=== PATIENT | female | born 1990 | race Caucasian/White ===

== ENCOUNTER 2017-07-21 00:52 | Emergency (ER) | payer BC ==
--- NOTE | 2017-07-21 01:30 | ED ---
General Adult HPI - General Chief complaint: Chest Pain Stated complaint: chest pain Time Seen by Provider: 07/21/17 01:05 Source: patient, family, RN notes reviewed Mode of arrival: ambulatory Limitations: no limitations - History of Present Illness Initial comments: 27-year-old female presents emergency room chief complaint of chest pain. Patient's initial chest pain radiating to her back in cosmetics and tingling to left shoulder area. Patient states the pain completely resolved. Patient states she has no pain at this time. Patient states have an episode of nausea with it. Patient states she was just leaning been trying to sleep when it happened. Patient states he did not last very long. Patient states she's never had anything like this before. Patient states there was no shortness of breath associated with this. Patient denies any use of control she denies any long trips or travel she denies any calf pain. Patient states that she not feel short of breath this happened. Patient denies any significant health history in her. There is no Duncan in history any amnesia and her family. Patient denies any recent fever, chills, shortness of breath, back pain , abdominal pain, vomiting, numbness or tingling, dysuria or hematuria, constipation or diarrhea, headaches or visual changes, or any other current symptoms. - Related Data Home Medications Medication Instructions Recorded Confirmed No Known Home Medications [No 07/21/17 07/21/17 Known Home Medications] Allergies Allergy/AdvReac Type Severity Reaction Status Date / Time No Known Allergies Allergy Verified 07/21/17 01:03 Review of Systems ROS Statement: Those systems with pertinent positive or pertinent negative responses have been documented in the HPI. ROS Other: All systems not noted in ROS Statement are negative. Past Medical History Past Medical History: No Reported History History of Any Multi-Drug Resistant Organisms: None Reported Past Surgical History: Orthopedic Surgery Past Psychological History: No Psychological Hx Reported Smoking Status: Current some day smoker Past Alcohol Use History: Occasional Past Drug Use History: None Reported General Exam - General Exam Comments Initial Comments: General: The patient is awake and alert, in no distress, and does not appear acutely ill. Eye: Pupils are equal, round and reactive to light, extra-ocular movements are intact; there is normal conjunctiva bilaterally. No signs of icterus. Ears, nose, mouth and throat: There are moist mucous membranes. Neck: The neck is supple, there is no tenderness. Cardiovascular: There is a regular rate and rhythm. No murmur, rub or gallop is appreciated. Respiratory: Lungs are clear to auscultation, respirations are non-labored, breath sounds are equal. No wheezes, stridor, rales, or rhonchi. Gastrointestinal: Soft, non-distended, non-tender abdomen without masses or organomegaly noted. There is no rebound or guarding present. No CVA tenderness. Bowel sounds are unremarkable. Back: There is no tenderness to palpation in the midline. There is no obvious deformity. No rashes noted. Musculoskeletal: Normal ROM, no tenderness, There is no pedal edema. There is no calf tenderness or swelling. Sensation intact. Pulses equal bilaterally 2+. Neurological: CN II-XII intact, There are no obvious motor or sensory deficits. Coordination appears grossly intact. Speech is normal. Skin: Skin is warm and dry and no rashes or lesions are noted. Psychiatric: Cooperative, appropriate mood & affect, normal judgment. Limitations: no limitations Course Vital Signs 07/21/17 01:00 Temperature 99 F Pulse Rate 78 Respiratory 18 Rate Blood Pressure 150/78 O2 Sat by Pulse 99 Oximetry EKG Findings - EKG Comments: EKG Findings:: normal sinus rhythm with sinus arrhythmia 70 bpm, normal axis, no atopy, no S-T depressions or elevations, Medical Decision Making - Medical Decision Making 27-year-old female presents to the emergency department with a chief complaint of chest pain. This time patient's EKG and chest x-ray reviewed and negative. We did discuss that she does need to be continued outpatient follow-up. We discussed return parameters possible etiologies for pain. We did discuss all the patient's questions. It is small questions have been answered and the on agreement plan. This time they will be discharged home. - Radiology Data Radiology results: report reviewed, image reviewed Disposition Clinical Impression: Chest pain Disposition: HOME SELF-CARE Condition: Stable Instructions: Chest Pain (ED) Additional Instructions: Please use medication as discussed. Please follow up with family doctor if symptoms have not improved over the next two days. Please return to the emergency room if your symptoms increase or worsen or for any other concerns. Referrals: Ruslan Lovelace DO [Primary Care Provider] - 1-2 days Time of Disposition: 02:17
--- NOTE | 2017-07-21 02:09 | XR ---
EXAM: XR Chest, 2 Views CLINICAL HISTORY: Reason: cough TECHNIQUE: Frontal and lateral views of the chest. COMPARISON: No relevant prior studies available. FINDINGS: Lungs: Unremarkable. No consolidation. Pleural space: Unremarkable. No pneumothorax. Heart: Unremarkable. No cardiomegaly. Mediastinum: Unremarkable. Bones/joints: No acute osseous abnormality. IMPRESSION: No acute cardiopulmonary process.
[2017-07-21 02:31] VITALS: BP 119/67; PULSE 57; RESP 16; TEMP 98.2
== END 2017-07-21 02:30 | disposition home or self-care (01) ==
LOC: EC 00:52
DX: R07.9 Chest pain, unspecified (principal); M54.9 Dorsalgia, unspecified; R20.2 Paresthesia of skin; R11.0 Nausea; F17.200 Nicotine dependence, unspecified, uncomplicated
CPT/HCPCS: 71020; 93005; 99285

== ENCOUNTER → 2018-12-16 | Outpatient (CLI) | payer BC ==
--- NOTE | 2018-12-16 09:45 | CT ---
EXAMINATION TYPE: CT knee RT wo con DATE OF EXAM: 12/16/2018 COMPARISON: None HISTORY: 28-year-old female displaced fracture of the lateral condyle of right tibia Right knee pain, Effusion, right knee, Displaced fracture of lateral condyle of right knee TECHNIQUE: Contiguous axial scanning of the right knee without IV contrast. Coronal and sagittal dot nstructions performed. 3-D reconstructions generated on a dedicated independent workstation. CT DLP: 368 mGycm Automated exposure control for dose reduction was used. FINDINGS: There is a comminuted impaction type fracture of the lateral tibial plateau. This involves the majori ty of the articular surface measuring 2.5 cm wide and 3.0 cm AP. Impaction of articular bone into the lateral tibial plateau measures up to 7 mm. Fracture extends through some of the anterolateral cortical margin of the proximal tibial epiphysis w here additional comminution is present. Moderate knee joint effusion. Extensor mechanism is intact. No additional acute fracture is identifie d. IMPRESSION: COMMINUTED IMPACTION FRACTURE OF THE ARTICULAR SURFACE OF THE LATERAL TIBIAL PLATEAU. THERE IS IMPACT ION OF THE SUBARTICULAR BONE MEASURING UP TO 7.5 CM DEEP. THE OVERALL ARTICULAR SURFACE DISRUPTION M EASURES 2.5 CM WIDE AND 3.0 CM AP. COMMINUTION EXTENDS TO INVOLVE THE ANTEROLATERAL LIP OF THE LATERA L TIBIAL PLATEAU.
== END | disposition home or self-care (01) ==
LOC: RADCTMAIN 08:22
PROVIDERS: ATTEND Orthopaedic Surgery
DX: S82.251A Displaced comminuted fracture of shaft of right tibia, initial encounter for closed fracture (principal)

== ENCOUNTER → 2019-05-03 | Outpatient (CLI) | payer BC ==
[2019-05-03 08:16] LABS: Basophils % (A) 1 %; Eosinophils # (A) 0.2 k/uL (0-0.7); Eosinophils % (A) 2 %; HCT 40.9 % (34.0-46.0); HGB 13.6 gm/dL (11.4-16.0); Lymphocytes # (A) 1.5 k/uL (1.0-4.8); Lymphocytes % (A) 19 %; MCHC 33.2 g/dL (31.0-37.0); MCV 87.4 fL (80.0-100.0); Monocytes # (A) 0.5 k/uL (0-1.0); Monocytes % (A) 6 %; Neutrophils # (A) 5.4 k/uL (1.3-7.7); Neutrophils % (A) 69 %; Platelet Count 322 k/uL (150-450); RBC 4.68 m/uL (3.80-5.40); RDW 13.8 % (11.5-15.5); WBC 7.8 k/uL (3.8-10.6)
[2019-05-03 10:52] LABS: African American GFR (CKD) 100.1 (60.0-200.0); Albumin 4.4 g/dL (3.80-4.90); Albumin/Globulin Ratio 1.83 (1.60-3.17); Anion Gap 7.1 mmol/L (4.00-12.00); BUN/Creat Ratio 13.33 Ratio (12.00-20.00); Calcium 9.6 mg/dL (8.7-10.3); Carbon Dioxide 27.9 mmol/L (21.6-31.8); Globulin 2.4 g/dL (1.6-3.3); LDL Cholesterol,Calculated 118.8 mg/dL (0.0-131.0); Potassium 4.3 mmol/L (3.5-5.5); Total Bilirubin 0.5 mg/dL (0.2-1.2); Total Protein 6.8 g/dL (6.2-8.2); VLDL Calculation 29.2 mg/dL (5.00-40.00)
== END | disposition home or self-care (01) ==
LOC: LABWHC1 07:17
PROVIDERS: ATTEND Physician Assistant
DX: Z00.00 Encounter for general adult medical examination without abnormal findings (principal)
CPT/HCPCS: 36415; 80053; 80061; 85025

== ENCOUNTER 2021-10-25 15:23 | Emergency (ER) | payer BC ==
[2021-10-25 16:53] LABS: Appearance,Urine Cloudy (Clear); Bacteria,Urine Rare /hpf; Bilirubin,Urine Negative (Negative); Blood,Urine Moderate (Negative); Color,Urine Yellow; Glucose,Urine (UA) Negative (Negative); Ketones,Urine Negative (Negative); Leukocyte Esterase,Urine Large (Negative); Mucus,Urine Rare /hpf; Nitrite,Urine Negative (Negative); Protein,Urine 1+ (Negative); RBC,Urine 2 /hpf (0-5); Specific Gravity,Urine 1.021 (1.001-1.035); Squamous Epithelial Cell,Urine 11 /hpf (0-4); WBC,Urine 12 /hpf (0-5)
--- NOTE | 2021-10-25 17:59 | ED ---
General Adult HPI - General Source: patient, RN notes reviewed, old records reviewed Mode of arrival: ambulatory Limitations: no limitations <Wellington Dalal - Last Filed: 10/25/21 17:59> <Elodia Parra - Last Filed: 10/25/21 18:03> - General Chief complaint: Recheck/Abnormal Lab/Rx Stated complaint: Covid+/antibodies, poss UTI Time Seen by Provider: 10/25/21 17:59 - Related Data Previous Rx's Medication Instructions Recorded Albuterol Sulfate [Proair Hfa] 1 - 2 puff INHALATION Q6HR PRN 10/25/21 #8.5 gm Dexamethasone 6 mg PO DAILY #3 tablet 10/25/21 Nitrofurantoin Monohyd/M-Cryst 100 mg PO Q12HR #14 cap 10/25/21 [Macrobid] Allergies Allergy/AdvReac Type Severity Reaction Status Date / Time amoxicillin [From Augmentin] Allergy Unknown Verified 10/25/21 16:19 clavulanic acid Allergy Unknown Verified 10/25/21 16:19 [From Augmentin] Review of Systems ROS Other: All systems not noted in ROS Statement are negative. <Wellington Dalal - Last Filed: 10/25/21 17:59> ROS Other: All systems not noted in ROS Statement are negative. <Elodia Parra - Last Filed: 10/25/21 18:03> ROS Statement: Those systems with pertinent positive or pertinent negative responses have been documented in the HPI. Past Medical History Past Medical History: No Reported History History of Any Multi-Drug Resistant Organisms: None Reported Past Surgical History: Orthopedic Surgery Past Psychological History: Anxiety Smoking Status: Never smoker Past Alcohol Use History: Occasional Past Drug Use History: None Reported <Wellington Dalal - Last Filed: 10/25/21 17:59> General Exam Limitations: no limitations <Wellington Dalal - Last Filed: 10/25/21 17:59> Course Vital Signs 10/25/21 16:19 Temperature 100.8 F H Pulse Rate 111 H Respiratory 20 Rate Blood Pressure 116/80 O2 Sat by Pulse 93 L Oximetry Medical Decision Making - Lab Data Lab Results 10/25/21 10/25/21 Range/Units 16:27 16:27 Urine Color Yellow Urine Appearance Cloudy H (Clear) Urine pH 6.0 (5.0-8.0) Ur Specific [place] 1.021 (1.001-1.035) Urine Protein 1+ H (Negative) Urine Glucose (UA) Negative (Negative) Urine Ketones Negative (Negative) Urine Blood Moderate H (Negative) Urine Nitrite Negative (Negative) Urine Bilirubin Negative (Negative) Urine Urobilinogen 4.0 (<2.0) mg/dL Ur Leukocyte Esterase Large H (Negative) Urine RBC 2 (0-5) /hpf Urine WBC 12 H (0-5) /hpf Ur Squamous Epith Cells 11 H (0-4) /hpf Urine Bacteria Rare H (None) /hpf Urine Mucus Rare H (None) /hpf Urine HCG, Qual Not Detected (Not Detectd) Disposition <Wellington Dalal - Last Filed: 10/25/21 17:59> Is patient prescribed a controlled substance at d/c from ED?: No Time of Disposition: 18:02 <Elodia Parra - Last Filed: 10/25/21 18:03> Clinical Impression: Pneumonia due to COVID-19 virus, UTI (urinary tract infection) Disposition: HOME SELF-CARE Condition: Good Instructions (If sedation given, give patient instructions): Urinary Tract Infection in Women (ED), Coronavirus Disease 2019 (COVID-19) Additional Instructions: Tips to help you feel better: -Maintain adequate fluid intake - especially water. -Rest, you are healing your body will require extra sleep. -Eat even if you do not feel like it - broth, jello, toast are fine if you cannot eat full meals. -Take tylenol and motrin alternating (if you have no allergies or have not been instructed to avoid these medications) to help with body aches and fevers. -Obtain over the counter vitamin C, zinc, and vitamin D3. -Take medications as prescribed. Follow-up with your primary care physician for recheck in 1-2 days. Return for any new, worsening, or concerning symptoms. Prescriptions: Dexamethasone 6 mg PO DAILY #3 tablet Nitrofurantoin Monohyd/M-Cryst [Macrobid] 100 mg PO Q12HR #14 cap Albuterol Sulfate [Proair Hfa] 1 - 2 puff INHALATION Q6HR PRN #8.5 gm PRN Reason: Shortness Of Breath Referrals: Ruslan Lovelace DO [Primary Care Provider] - 1-2 days
--- NOTE | 2021-10-25 18:04 | ED ---
General Adult HPI - General Chief complaint: Recheck/Abnormal Lab/Rx Stated complaint: Covid+/antibodies, poss UTI Time Seen by Provider: 10/25/21 17:59 Source: patient Mode of arrival: ambulatory Limitations: no limitations - History of Present Illness Initial comments: 31-year-old female patient presents to the emergency department today for evaluation of persistent fever, cough, shortness of breath since being diagnosed with colon. States she has been having symptoms for the last 11 days. States she has been taking steroids has been on an antibiotic. States she is taking Phenergan for cough. States she spiked a fever again today. States her urine has been dark in odorous. States she is urinating more frequently. She is concerned she may have a urinary tract infection. She was hoping to receive infusion of a monoclonal antibodies. Denies taking any Tylenol or Motrin today. Denies any vomiting or diarrhea. States she is able to eat and drink. Denies any chance of . - Related Data Previous Rx's Medication Instructions Recorded Albuterol Sulfate [Proair Hfa] 1 - 2 puff INHALATION Q6HR PRN 10/25/21 #8.5 gm Dexamethasone 6 mg PO DAILY #3 tablet 10/25/21 Nitrofurantoin Monohyd/M-Cryst 100 mg PO Q12HR #14 cap 10/25/21 [Macrobid] Allergies Allergy/AdvReac Type Severity Reaction Status Date / Time amoxicillin [From Augmentin] Allergy Unknown Verified 10/25/21 16:19 clavulanic acid Allergy Unknown Verified 10/25/21 16:19 [From Augmentin] Review of Systems ROS Statement: Those systems with pertinent positive or pertinent negative responses have been documented in the HPI. ROS Other: All systems not noted in ROS Statement are negative. Past Medical History Past Medical History: No Reported History History of Any Multi-Drug Resistant Organisms: None Reported Past Surgical History: Orthopedic Surgery Past Psychological History: Anxiety Smoking Status: Never smoker Past Alcohol Use History: Occasional Past Drug Use History: None Reported General Exam Limitations: no limitations General appearance: alert, in no apparent distress, other (This is a well- developed, well-nourished adult female in no acute distress.) Eye exam: Present: normal appearance, PERRL, EOMI. Absent: scleral icterus, conjunctival injection, periorbital swelling ENT exam: Present: normal exam, normal oropharynx, mucous membranes moist Respiratory exam: Present: normal lung sounds bilaterally, other (Crackles at the bases bilaterally posterior). Absent: respiratory distress, wheezes, rales, rhonchi, stridor Cardiovascular Exam: Present: normal rhythm, tachycardia, normal heart sounds. Absent: systolic murmur, diastolic murmur, rubs, gallop, clicks GI/Abdominal exam: Present: soft, normal bowel sounds. Absent: distended, tenderness, guarding, rebound, rigid Neurological exam: Present: alert, oriented X3, CN II-XII intact Psychiatric exam: Present: normal affect, normal mood Skin exam: Present: warm, dry, intact, normal color. Absent: rash Course Vital Signs 10/25/21 10/25/21 16:19 18:15 Temperature 100.8 F H 97.2 F L Pulse Rate 111 H 103 H Respiratory 20 18 Rate Blood Pressure 116/80 129/82 O2 Sat by Pulse 93 L 93 L Oximetry Medical Decision Making - Medical Decision Making 31-year-old female patient presents to the emergency department requesting infusion a monoclonal antibodies after testing positive for COVID-19. Unfortunate she has been having symptoms for the last 11 days and no longer meets criteria. Physical examination did reveal crackles at the bilateral posterior lung bases consistent with pneumonia. She is currently taking steroids at home, had a 7 day prescription for dexamethasone, did give her additional 3 tablets for this. She is given a Pro Air inhaler. She also did have urinary symptoms and evidence for possible UTI on urinalysis. She'll be given prescription for Macrobid. She is instructed to follow-up with her primary care physician for recheck in 1-2 days. She is given instructions for supportive care at home. Return parameters were discussed in detail. She verbalizes understanding and agrees this plan. My attending is Dr. Davalos. - Lab Data Lab Results 10/25/21 10/25/21 Range/Units 16:27 16:27 Urine Color Yellow Urine Appearance Cloudy H (Clear) Urine pH 6.0 (5.0-8.0) Ur Specific [place] 1.021 (1.001-1.035) Urine Protein 1+ H (Negative) Urine Glucose (UA) Negative (Negative) Urine Ketones Negative (Negative) Urine Blood Moderate H (Negative) Urine Nitrite Negative (Negative) Urine Bilirubin Negative (Negative) Urine Urobilinogen 4.0 (<2.0) mg/dL Ur Leukocyte Esterase Large H (Negative) Urine RBC 2 (0-5) /hpf Urine WBC 12 H (0-5) /hpf Ur Squamous Epith Cells 11 H (0-4) /hpf Urine Bacteria Rare H (None) /hpf Urine Mucus Rare H (None) /hpf Urine HCG, Qual Not Detected (Not Detectd) Disposition Clinical Impression: Pneumonia due to COVID-19 virus, UTI (urinary tract infection) Disposition: HOME SELF-CARE Condition: Good Instructions (If sedation given, give patient instructions): Coronavirus Disease 2019 (COVID-19), Urinary Tract Infection in Women (ED) Additional Instructions: Tips to help you feel better: -Maintain adequate fluid intake - especially water. -Rest, you are healing your body will require extra sleep. -Eat even if you do not feel like it - broth, jello, toast are fine if you cannot eat full meals. -Take tylenol and motrin alternating (if you have no allergies or have not been instructed to avoid these medications) to help with body aches and fevers. -Obtain over the counter vitamin C, zinc, and vitamin D3. -Take medications as prescribed. Follow-up with your primary care physician for recheck in 1-2 days. Return for any new, worsening, or concerning symptoms. Prescriptions: Dexamethasone 6 mg PO DAILY #3 tablet Nitrofurantoin Monohyd/M-Cryst [Macrobid] 100 mg PO Q12HR #14 cap Albuterol Sulfate [Proair Hfa] 1 - 2 puff INHALATION Q6HR PRN #8.5 gm PRN Reason: Shortness Of Breath Is patient prescribed a controlled substance at d/c from ED?: No Referrals: Ruslan Lovelace DO [Primary Care Provider] - 1-2 days Time of Disposition: 18:04
[2021-10-25 18:17] VITALS: BP 129/82; PULSE 103; RESP 18; TEMP 97.2
== END 2021-10-25 18:18 | disposition home or self-care (01) ==
LOC: EC 15:23
DX: U07.1 COVID-19 (principal); J12.82 Pneumonia due to coronavirus disease 2019; N39.0 Urinary tract infection, site not specified
CPT/HCPCS: 81001; 81025; 87086; 99284

== ENCOUNTER 2023-05-28 15:06 | Emergency (ER) | payer BC, OTHER ==
[2023-05-28 15:16] VITALS: RESP 18
[2023-05-28] MEDS ORDERED: BENZOCAINE/MENTHOL LOZENG 1 EACH LOZENGE MUCOUS MEM STA (15:21)
[2023-05-28] MEDS ORDERED: IBUPROFEN 800 MG TAB PO STA (15:23)
[2023-05-28] MEDS ORDERED: AMOXICILLIN 875 MG TAB PO STA (17:17)
[2023-05-28] MEDS ORDERED: FLUTICASONE 50MCG/SPRAY NASAL 16GM EA NOSTRIL STA (17:22)
--- NOTE | 2023-05-28 18:16 | ED ---
Recheck HPI - General Chief Complaint: Recheck/Abnormal Lab/Rx Stated Complaint: Recheck Time Seen by Provider: 05/28/23 15:19 Source: patient Mode of arrival: ambulatory Limitations: no limitations - History of Present Illness Initial Comments: Patient is a 33-year-old female presents to the emergency Department for sore throat. She says sore throat and congestion for the past week. She went to urgent care but was sent to the emergency department for swollen lymph node in her right neck. Patient noticed it a few days ago states it is tender. Reports low-grade fever. Denies cough, vomiting. She did have mono testing urgent care which was negative. - Related Data Previous Rx's Medication Instructions Recorded Albuterol Sulfate [Proair Hfa] 1 - 2 puff INHALATION Q6HR PRN 10/25/21 #8.5 gm Nitrofurantoin Monohyd/M-Cryst 100 mg PO Q12HR #14 cap 10/25/21 [Macrobid] dexAMETHasone [Dexamethasone] 6 mg PO DAILY #3 tablet 10/25/21 Amoxicillin 875 mg PO Q12HR #20 tablet 05/28/23 Benzocaine/Menthol Lozeng [Cepacol 1 each MUCOUS MEM Q4HR PRN #30 05/28/23 lozenge] lozenge Ibuprofen [Motrin] 800 mg PO Q8HR PRN #30 tab 05/28/23 Allergies Allergy/AdvReac Type Severity Reaction Status Date / Time amoxicillin [From Augmentin] Allergy Unknown Verified 05/28/23 17:23 clavulanic acid Allergy Unknown Verified 05/28/23 17:23 [From Augmentin] Review of Systems ROS Statement: Those systems with pertinent positive or pertinent negative responses have been documented in the HPI. ROS Other: All systems not noted in ROS Statement are negative. Past Medical History Past Medical History: No Reported History History of Any Multi-Drug Resistant Organisms: None Reported Past Surgical History: Orthopedic Surgery Past Psychological History: Anxiety Smoking Status: Never smoker Past Alcohol Use History: Occasional Past Drug Use History: None Reported General Exam Limitations: no limitations General appearance: alert, in no apparent distress Eye exam: Present: normal appearance, PERRL, EOMI. Absent: scleral icterus, conjunctival injection, periorbital swelling ENT exam: Absent: normal oropharynx (erythematous posterior pharynx no tonsillar exudate or swelling) Neck exam: Present: full ROM, lymphadenopathy (right parotid gland enlarged te nder non erythematous ). Absent: meningismus Respiratory exam: Present: normal lung sounds bilaterally. Absent: respiratory distress, wheezes, rales, rhonchi, stridor Cardiovascular Exam: Present: regular rate, normal rhythm, normal heart sounds. Absent: systolic murmur, diastolic murmur, rubs, gallop, clicks Neurological exam: Present: alert, oriented X3, CN II-XII intact Psychiatric exam: Present: normal affect, normal mood Skin exam: Present: warm, dry, intact, normal color. Absent: rash Course Vital Signs 05/28/23 05/28/23 15:11 18:25 Temperature 99.4 F 98.6 F Pulse Rate 114 H 72 Respiratory 18 18 Rate Blood Pressure 132/89 136/76 O2 Sat by Pulse 100 99 Oximetry Medical Decision Making - Medical Decision Making Was pt. sent in by a medical professional or institution (, PA, DESKTOP SUPPORT TECHNICIAN, urgent care, hospital, or alf...) When possible be specific @ -Urgent care today Did you speak to anyone other than the patient for history (EMS, parent, family, police, friend...)? What history was obtained from this source @ -No Did you review nursing and triage notes (agree or disagree)? Why? @ -I reviewed and agree with nursing and triage notes Were old charts reviewed (outside hosp., previous admission, EMS record, old EKG, old radiological studies, urgent care reports/EKG's, alf records)? Report findings @ -No old charts were reviewed Differential Diagnosis (chest pain, altered mental status, abdominal pain women, abdominal pain men, vaginal bleeding, weakness, fever, dyspnea, syncope, headache, dizziness, GI bleed, back pain, seizure, CVA, palpatations, mental health)? @ -Peritonitis, strep pharyngitis, mono, upper respiratory infection. This list is not meant to be all-inclusive EKG interpreted by me (3pts min.). @ -As above X-rays interpreted by me (1pt min.). @ -None done CT interpreted by me (1pt min.). @ -None done U/S interpreted by me (1pt. min.). @ -None done What testing was considered but not performed or refused? (CT, X-rays, U/S, labs)? Why? @ -None What meds were considered but not given or refused? Why? @ -None Did you discuss the management of the patient with other professionals (professionals i.e. , PA, DESKTOP SUPPORT TECHNICIAN, lab, RT, psych nurse, community mental health social worker, bulk sealer operator, teacher, correctional officer, keycase assembler)? Give summary @ -No Was smoking cessation discussed for >3mins.? @ -No Was critical care preformed (if so, how long)? @ -No Were there social determinants of health that impacted care today? How? (Homelessness, low income, unemployed, alcoholism, drug addiction, transportation, low edu. Level, literacy, decrease access to med. care, shelter, rehab)? @ -No Was there de-escalation of care discussed even if they declined (Discuss DNR or withdrawal of care, Hospice)? DNR status @ -No What co-morbidities impacted this encounter? (DM, HTN, Smoking, COPD, CAD, Cancer, CVA, ARF, Chemo, Hep., AIDS, mental health diagnosis, sleep apnea, morbid obesity)? @ -None Was patient admitted / discharged? Hospital course, mention meds given and route, prescriptions, significant lab abnormalities, going to OR and other pertinent info. @ -Patient has parotitis secondary to strep infection. Patient states she has tolerated amoxicillin before without ALLERGIC reaction she'll be discharged with amoxicillin and symptomatic management Undiagnosed new problem with uncertain prognosis? @ -[No] Drug Therapy requiring intensive mnioring for toxicity (Heparin, Nitro, Insulin, Cardizem)? @ -[No] Were any procedures done? @ -[No] Diagnosis @-parotitis, strep pharyngitis Acute, or Chronic, or Acute on Chronic? @ -acute Uncomplicated (without systemic symptoms) or Complicated (systemic symptoms)? @ -uncomplicated Side effects of treatment? @ -No Exacerbation, Progression, or Severe Exacerbation? @ -No Poses a threat to life or bodily function? How? (Chest pain, [place], [place], pneumonia, PE, COPD, DKA, ARF, appy, cholecystitis, CVA, Diverticulitis, Homicidal, Suicidal, threat to staff... and all critical care pts) @ -No Dr. Barahona is my attending - Lab Data Lab Results 05/28/23 05/28/23 Range/Units 15:45 15:45 Influenza Type A (PCR) Not Detected (Not Detectd) Influenza Type B (PCR) Not Detected (Not Detectd) RSV (PCR) Not Detected (Not Detectd) SARS-CoV-2 (PCR) Not Detected (Not Detectd) Group A Strep (PCR) DETECTED A (Not Detectd) Disposition Clinical Impression: Acute parotitis, Strep throat Disposition: HOME SELF-CARE Condition: Good Instructions (If sedation given, give patient instructions): Strep Throat (ED), Mumps in Adults (ED) Additional Instructions: Take medication as directed. Please follow-up with your primary care provider in 1-2 days. Return to the emergency department if you experience new, concerning, or worsening symptoms. Prescriptions: Amoxicillin 875 mg PO Q12HR #20 tablet Benzocaine/Menthol Lozeng [Cepacol lozenge] 1 each MUCOUS MEM Q4HR PRN #30 lozenge PRN Reason: Pain Ibuprofen [Motrin] 800 mg PO Q8HR PRN #30 tab PRN Reason: Pain Is patient prescribed a controlled substance at d/c from ED?: No Referrals: Ruslan Lovelace DO [Primary Care Provider] - 1-2 days
[2023-05-28 18:29] VITALS: BP 136/76; PULSE 72; TEMP 98.6
== END 2023-05-28 18:34 | disposition home or self-care (01) ==
LOC: EC 15:06
DX: K11.21 Acute sialoadenitis (principal); J02.0 Streptococcal pharyngitis; B95.0 Streptococcus, group A, as the cause of diseases classified elsewhere; Z20.822 Contact with and (suspected) exposure to COVID-19; Z88.0 Allergy status to penicillin; Z88.8 Allergy status to other drugs, medicaments and biological substances; Z86.59 Personal history of other mental and behavioral disorders
CPT/HCPCS: 87636; 87651; 99284